=== PATIENT | male | born 1990 | race Caucasian/White ===

== ENCOUNTER 2016-10-25 01:01 | Emergency (ER) | payer OTHER ==
[2016-10-25 01:07] VITALS: TEMP 97; BMI 24.3
[2016-10-25] MEDS ORDERED: LABETALOL HCL 5 MG/1 ML (100MG/20 ML VIAL) IVPUSH ONE (01:26)
[2016-10-25] MEDS ORDERED: LABETALOL HCL 5 MG/1 ML (200MG/40ML VIAL) IVPB ONE (01:49)
[2016-10-25 01:53] LABS: BASOPHIL 0.5 % (0-2.0); EOSINOPHIL 2.1 % (0-4.5); MCHC 33.4 g/dl (32.0-35.9); MEAN CELL VOLUME 89.7 fl (80-96); MEAN PLT VOLUME 7.7 fl (7.5-11.1); NEUTROPHILS 66.2 % (42.8-82.8); PLATELET COUNT 180 K/MM3 (134-434); RDW 12.1 % (11.9-15.9); WHITE BLOOD COUNT 5.8 K/mm3 (4.0-10.0)
[2016-10-25] MEDS ORDERED: SODIUM CHLORIDE 0.9% 500 ML INFUS.BAG IV ONE (01:53)
--- NOTE | 2016-10-25 01:54 | PDOC ---
History of Present Illness - General History Source: Patient Exam Limitations: No Limitations - History of Present Illness Initial Comments: 10/25/16 01:54 The patient is a 25 year old male, with significant past medical history of hemorrhoids, depression, and ADD, borderline HTN, who presents today complaining of a rectal bleed starting approximately 1 hour ago. He is actively bleeding through his pants and onto the chair.The patient notes that he took Ly (MDMA) and was drinking alcohol this evening while at a constitution party. He notes that he has external hemorrhoids and has been eating a high fiber diet and uses baby wipes. The last time he visited an ER for bleeding hemorrhoids was in 2014. Denies cocaine use. Denies recent straining. Denies fever, chills, nausea, vomiting. Denies abdominal pain. Allergies: none reported PCP- Dr. Cruz Tanner ([facility]) <Jennifer Verde - Last Filed: 10/25/16 01:54> <Rehana Paredes - Last Filed: 10/26/16 03:44> - General Chief Complaint: Rectal Bleed Stated Complaint: RECTAL BLEED Time Seen by Provider: 10/25/16 01:25 Past History <Jennifer Verde - Last Filed: 10/25/16 01:54> - Past Medical History Other medical history: denies - Psycho/Social/Smoking Cessation Hx Suicidal Ideation: No Smoking History: Never smoked <Rehana Paredes - Last Filed: 10/26/16 03:44> - Past Medical History Allergies/Adverse Reactions: Allergies Allergy/AdvReac Type Severity Reaction Status Date / Time No Known Allergies Allergy Verified 10/25/16 01:07 Home Medications: Ambulatory Orders Bupropion HCl [Wellbutrin Xl -] 450 mg PO DAILY 10/25/16 Phenylephrine HCl/Bardolph Butter [Preparation H Suppository] 1 each RC BID #10 supp.rect 10/25/16 Review of Systems - Review of Systems Able to Perform ROS?: Yes Comments:: 10/25/16 01:55 GENERAL/CONSTITUTIONAL: No fever or chills. No weakness. HEAD, EYES, EARS, NOSE AND THROAT: No change in vision. No ear pain or discharge. No sore throat. CARDIOVASCULAR: No chest pain or shortness of breath. RESPIRATORY: No cough, wheezing, or hemoptysis. GASTROINTESTINAL: No nausea, vomiting, diarrhea or constipation. GENITOURINARY: No dysuria, frequency, or change in urination. RECTAL: +bleeding hemorrhoids MUSCULOSKELETAL: No joint or muscle swelling or pain. No neck or back pain. SKIN: No rash NEUROLOGIC: No headache, vertigo, loss of consciousness, or change in strength/ sensation. ENDOCRINE: No increased thirst. No abnormal weight change. HEMATOLOGIC/LYMPHATIC: No anemia, easy bleeding, or history of blood clots. ALLERGIC/IMMUNOLOGIC: No hives or skin allergy. <Jennifer Verde - Last Filed: 10/25/16 01:54> *Physical Exam - Vital Signs Last Vital Signs Temp Pulse Resp BP Pulse Ox 97 F L 112 H 20 123/74 99 10/25/16 01:03 10/25/16 01:03 10/25/16 01:03 10/25/16 01:03 10/25/16 01:03 - Physical Exam Comments: 10/25/16 01:55 GENERAL: Awake, alert, and fully oriented, in no acute distress. Febrile and hot. HEAD: No signs of trauma EYES: PERRLA, Pupils are enlarged to approximately 5mm. EOMI, sclera anicteric , conjunctiva clear ENT: Auricles normal inspection, hearing grossly normal, nares patent, oropharynx clear without exudates. Moist mucosa NECK: Normal ROM, supple, no lymphadenopathy, JVD, or masses LUNGS: Breath sounds equal, clear to auscultation bilaterally. No wheezes, and no crackles HEART: Blood pressure is 175 systolic with large cuff. Regular rate and rhythm, normal S1 and S2, no murmurs, rubs or gallops ABDOMEN: Soft, nontender, normoactive bowel sounds. No guarding, no rebound. No masses RECTAL: No blood in the rectal vault. 3 hemorrhoids. EXTREMITIES: Normal range of motion, no edema. No clubbing or cyanosis. No cords, erythema, or tenderness NEUROLOGICAL: Cranial nerves II through XII grossly intact. Normal speech, normal gait SKIN: Warm, Dry, normal turgor, no rashes or lesions noted. <Jennifer Verde - Last Filed: 10/25/16 01:54> - Vital Signs Last Vital Signs Temp Pulse Resp BP Pulse Ox 97 F L 112 H 20 123/74 99 10/25/16 01:03 10/25/16 01:03 10/25/16 01:03 10/25/16 01:03 10/25/16 01:03 <Rehana Paredes - Last Filed: 10/26/16 03:44> Heart Score/ECG Review #1 General ECG Interpretation: Sinus Rhythm, Normal Rate, Normal Intervals Compared to previous ECG there are: Previous ECG unavail <Jennifer Verde - Last Filed: 10/25/16 01:54> ED Treatment Course - LABORATORY CBC & Chemistry Diagram: 10/25/16 01:42 10/25/16 01:42 <Jennifer Verde - Last Filed: 10/25/16 01:54> - LABORATORY CBC & Chemistry Diagram: 10/25/16 01:42 10/25/16 01:42 <Rehana Paredes - Last Filed: 10/26/16 03:44> Medical Decision Making - Medical Decision Making 10/26/16 03:36 Pt comes with severe spontaneous rectal bleeding while he was at a rave constitution party up the street from . He was drinking alcohol and using "mollys" (MDMA) which likely increased his BP and caused the bleeding. Pt states that he was told by PMD that he has borderline HTN and doesn't require meds for it. He denies cocaine use. He has had spontaneous rectal bleeding in the past when he was in college. He denies rectal sex or placing anything in his rectum. Pt soaked thru his pants and his underwear, which consist of biking shorts. Pt hasno abd pain. He is diaphoretic and he has no flank pain. Pt has active oozing from his rectum, and large hemorrhoids visible coming through the anus. He also has a small thrombosed looking external hemorrhoid. I spoke to GI who recommended that I place my finger in the rectum and tamponade the bleeding. Pt was examined using a clear plastic self lighted small speculum, which worked as an anuscope. Pt has no bleeding in the rectal vault. only the large hemorrhoids are a source of bleeding. The speculum served to decompress the hemorrhoids, and the large hemorrhoids and the thrombosed hemorrhoid disappeared with removal of the speculum. After removal of the speculum, the hemorrhoids remained inside his rectum. Pt had gauze placed in the cleft , while we awaited labs. Pt's BP was rx'd with labetalol, and his diaphoresis and tachy was also treated with NSS. Labs normal. Pt has his own GI and PMD in [place] and he has been asked to follow with them. I will rx Preparation H suppositories. <Rehana Paredes - Last Filed: 10/26/16 03:44> *DC/Admit/Observation/Transfer - Attestations Scribe Attestion: 10/25/16 01:55 Documentation prepared by SUKH Dunbar, acting as certified medical assistant for Rehana Paredes MD. <Jennifer Verde - Last Filed: 10/25/16 01:54> - Discharge Dispostion Admit: No <Rehana Paredes - Last Filed: 10/26/16 03:44> Diagnosis at time of Disposition: Bleeding hemorrhoid - Discharge Dispostion Disposition: HOME Condition at time of disposition: Improved - Prescriptions Prescriptions: Phenylephrine HCl/Bardolph Butter [Preparation H Suppository] 1 each RC BID #10 supp.rect - Referrals Referrals: STAFF,NOT ON [Primary Care Provider] - - Patient Instructions Printed Discharge Instructions: DI for Hemorrhoids, DI for Rectal Bleeding
[2016-10-25 02:06] LABS: INR 1.06 (0.82-1.09); PROTHROMBIN TIME (PATIENT) 11.7 SEC (9.98-11.88)
[2016-10-25 02:16] LABS: ALBUMIN 4.7 g/dl (3.4-5.0); ANION GAP 11 (8-16); BILIRUBIN,TOTAL 0.4 mg/dL (0.2-1.0); CO2 27 mmol/L (21-32); CREATININE 1.3 mg/dL (0.7-1.3); GLUCOSE,RANDOM 100 mg/dL (74-106); SGOT/AST 39 U/L (15-37); SGPT/ALT 33 U/L (12-78); TOT PROT 7.8 g/dl (6.4-8.2)
[2016-10-25 02:17] LABS: ALK PHOS 61 U/L (45-117)
[2016-10-25 05:09] VITALS: BP 137/79; PULSE 80
--- NOTE | 2016-10-26 10:38 | EKG ---
Test Reason : Blood Pressure : / mmHG Vent. Rate : 098 BPM Atrial Rate : 098 BPM P-R Int : 156 ms QRS Dur : 098 ms QT Int : 344 ms P-R-T Axes : 079 079 057 degrees QTc Int : 439 ms NORMAL SINUS RHYTHM POSSIBLE LEFT ATRIAL ENLARGEMENT INCOMPLETE RIGHT BUNDLE BRANCH BLOCK BORDERLINE ECG NO PREVIOUS ECGS AVAILABLE Confirmed by FRANK STEPHENSON MD ([id number]) on 10/26/2016 10:37:54 AM Referred By: Confirmed By:FRANK STEPHENSON MD
== END 2016-10-25 04:00 | disposition home or self-care (01) ==
LOC: JER 01:01
PROC: 3E033GC Introduction of Other Therapeutic Substance into Peripheral Vein, Percutaneous Approach (ICD-10-PCS; principal; 2016-10-25)
DX: K64.4 Residual hemorrhoidal skin tags (principal); F32.9 Major depressive disorder, single episode, unspecified; F98.8 Other specified behavioral and emotional disorders with onset usually occurring in childhood and adolescence; I10 Essential (primary) hypertension
CPT/HCPCS: 36415; 80053; 85025; 85610; 85730; 86850; 86900; 86901; 93005; 93010; 99282-25